=== PATIENT | male | born 1950 | race Caucasian/White ===

== ENCOUNTER 2019-02-10 14:21 | Inpatient (IN) | payer MEDICARE, OTHER ==
[~2019-02-10] VITALS: Ht 182.9 cm; Wt 90.5 kg
[~2019-02-10 14:21] MED LIST: 0.9 % Sodium Chloride IVF; ACET-1757 PO; ACET325T14 PO; ACET325T26 PO; ALPR0.25 PO; ALPR0.257 PO; ASPI-650; ASPI325T17 PO; BISA10SU2 PR; BISA10SU54 PR; BISA10SU65 PR; CEPH-368 PO; CEPH125S PO; DAPT500V6 IV; DIAZ5TAB4 PO; DIGO250T PO; DIGO250T6 PO; DIPH25CA61 PO; DOCU100C33 PO; DOXY100T PO; DULO20CA45 PO; ENOX30SY4 SQ; ENOX40SY4 SQ; ERTA1VIA INJ; ERTA1VIA IV; ERTA1VIA IVPB; FENT1PAT77 TD; FENT1PAT77 TP; FENT1PAT9 TD; FERR325T18 PO; FURO-92 PO; FURO-93 PO; FURO20TA3 PO; FURO80TA3 PO; HALO5AMP3 PO; HYDR-3237 PO; HYDR-3240 PO; HYDR-3241 PO; HYDR-3307 PO; IPRA3AMP30 NPPB; LACT1CAP24 PO; LACT1CAP3 PO; MAGN400O7 PO; MORP15TA3 PO; MORP30TA3 PO; MORP30TA81 PO; MORP5VIA IV; MORP5VIA IVPush; MULT1CAP19; MULT1CAP19 PO; MV-M1TAB3 PO; NA P133E2 PR; OMEP-110 PO; OMEP20CA9 PO; OMEP20TA62 PO; ONDA2VIA3 IV; ONDA4TAB12 PO; ONDA4VIA60 IVP; OXYC10TA6 PO; OXYC15TA PO; OXYC5TAB3 PO; POLY17PO29 PO; POLY17PO5 PO; POTA10TA31 PO; POTA20TA14 PO; POTA20TA6 PO; SENN8.6C2 PO; SULF1TAB24 PO; TAMS-11 PO; TAMS0.4C2; TAMS0.4C2 PO; VANC125C11 PO; VANC125C3 PO; VANC1VIA3 PO; VANCOMYCIN PO; ZOLP5TAB6 PO; [UNRECOGNIZED DRUG - CODE] IV
[2019-02-10] MEDS ORDERED: SODIUM CHLORIDE 0.9% 1,000 ML IV ONE (14:57)
[2019-02-10] MEDS ORDERED: VANCOMYCIN PER PHARMACY IV ONE (15:00)
[2019-02-10] MEDS ORDERED: SODIUM CHLORIDE FLUSH 10ML SYR IVF ONE ×2 (15:00)
--- NOTE | 2019-02-10 15:22 | NUR ---
PT CYNDY FROM SNF ([facility]) FOR ALTERED MENTAL STATUS, LAST SEEN NORMAL THIS AM AT 0800. REPORT TAKEN FROM EMS. PT DROWSY, IRRITABLE AND ONLY ORIENTED TO SELF ON ARRIVAL. WHEN NOT STIMULATED, PT FALLS ASLEEP IMMEDIATELY. ANSWERS QUESTIONS, SPEAKING IN FULL SENTENCES, FOLLOWS COMMANDS. PT HAS NO DRIFT, BILATERAL GRASP EQUAL. PT STATES HE CANNOT MOVE EITHER LE, IS NONAMBULATORY. PT ATTACHED TO ALL MONITORS, EKG TAKEN BY EDT. PICC TO RIGHT UPPER ARM, DRESSING CDI. PIV PLACED BY THIS RN, PER EDMD ORDERS. URINE SAMPLE COLLECTED AND SENT TO LAB. AWAITING LABS, TO BE ADMITTED.
[2019-02-10 15:30] LABS: BASOPHILS # (AUTO) 0.03 x10^3/uL (0-0.1); BASOPHILS % (AUTO) 1 % (0-1); EOSINOPHILS # (AUTO) 0.21 x10^3/uL (0-0.4); EOSINOPHILS % (AUTO) 3 % (1-7); LYMPHOCYTES # (AUTO) 1.19 x10^3/uL (1-3.4); LYMPHOCYTES % (AUTO) 16 % (22-44); MD NO; MEAN CORPUSCULAR HEMOGLOBIN 27.4 pg (27.5-34.5); MEAN CORPUSCULAR HGB CONC 32.2 g/dL (33.2-36.2); MEAN CORPUSCULAR VOLUME 85.1 fL (81-97); MEAN PLATELET VOLUME 8.6 fL (7.4-10.4); MONOCYTES # (AUTO) 0.81 x10^3/uL (0.2-0.8); MONOCYTES % (AUTO) 11 % (2-9); NEUTROPHILS # (AUTO) 5.14 x10^3/uL (1.8-6.8); NEUTROPHILS % (AUTO) 70 % (42-75); PLATELET COUNT 408 x10^3/uL (130-400); RED BLOOD COUNT 4.21 x10^6/uL (4.38-5.82); RED CELL DISTRIBUTION WIDTH 18.5 % (9.4-14.8)
[2019-02-10] MEDS ORDERED: VANCOMYCIN 2,400 MG in SODIUM CHLORIDE 0.9% 500 ML IV ONE (15:30)
[2019-02-10 15:37] LABS: INTERNATIONAL NORMALIZED RATIO 1.18 (0.93-1.1); PROTHROMBIN TIME 12.3 Seconds (9.6-11.5)
[2019-02-10 15:38] LABS: ALBUMIN 2.5 g/dL (3.4-5.0); ANION GAP 4 mmol/L (5-15); CALCIUM 8.8 mg/dL (8.5-10.1); CHLORIDE 97 mmol/L (98-107); CREATININE 0.81 mg/dL (0.7-1.3)
[2019-02-10 15:42] LABS: ALANINE AMINOTRANSFERASE < 6 U/L (12-78)
--- NOTE | 2019-02-10 15:43 | NUR ---
Break RN: Pt repositioned in bed, pt appears altered, calm, redirectable. Bed moved to face the tv, pt distracted and sleeping upon reassesment. Abx ordered from pharmacy.
[2019-02-10 15:46] LABS: MICROSCOPIC NOT IND
[2019-02-10 15:48] LABS: ALKALINE PHOSPHATASE 89 U/L (45-117); BILIRUBIN,TOTAL 0.4 mg/dL (0.2-1.0); TOTAL PROTEIN 7.8 g/dL (6.4-8.2)
[2019-02-10 15:50] LABS: CULTURE INDICATED? NO
--- NOTE | 2019-02-10 15:53 | NUR ---
LABOR ECONOMICS PROFESSOR: MEDICAL SITTER REQUESTED
--- NOTE | 2019-02-10 16:01 | NUR ---
BreakRN: Abx infusing, lights dimmed for pt comfort, clip. Charge aware of need for sitter.
--- NOTE | 2019-02-10 16:18 | NUR ---
PT SLEEPING IN BED, RESPS EVEN AND UNLABORED. PT IS NSR RATE 80'S WITH NO ECTOPY. VANCO/NS INFUSING. PT TO HAVE HEAD CT.
--- NOTE | 2019-02-10 16:51 | NUR ---
pt to ct with sitter
[2019-02-10 17:02] LABS: HCT (SEDRATE) 35.8 % (39.2-51.8)
--- NOTE | 2019-02-10 17:23 | NUR ---
PT BACK FROM CT. MD PONCE AT BEDSIDE TO ADMIT.
[2019-02-10] MEDS ORDERED: METO50TA82 PO (17:26)
[2019-02-10] MEDS ORDERED: DIVA500T2 PO (17:26)
[2019-02-10] MEDS ORDERED: FURO40TA6 PO (17:26)
[2019-02-10] MEDS ORDERED: ANCEF IV (17:26)
[2019-02-10] MEDS ORDERED: DIPH25CA61 PO (17:26)
[2019-02-10] MEDS ORDERED: FLUC200T4 PO (17:26)
[2019-02-10] MEDS ORDERED: UMEC1DIS INH (17:26)
[2019-02-10] MEDS ORDERED: ONDANSETRON ODT 4 MG PO PRN (17:30)
[2019-02-10] MEDS ORDERED: hydrALAzine 20 MG/ML, 1ML IVPush PRN (17:30)
[2019-02-10] MEDS ORDERED: LABETALOL 5MG/ML, 20ML IVPush PRN (17:30)
[2019-02-10] MEDS ORDERED: PROMETHAZINE 25 MG/ML, 1ML IM PRN (17:30)
[2019-02-10] MEDS ORDERED: ONDANSETRON 2MG/ML, 2ML IVPush PRN (17:30)
[2019-02-10] MEDS ORDERED: BISACODYL 10 MG SUPP PR PRN (17:30)
[2019-02-10] MEDS ORDERED: MORPHINE SULFATE 4 MG/ML, 1ML IVPush PRN (17:30)
[2019-02-10] MEDS ORDERED: ACETAMINOPHEN 325 MG TABLET PO PRN (17:30)
[2019-02-10] MEDS ORDERED: DOCUSATE 100 MG CAPSULE PO PRN (17:30)
[2019-02-10] MEDS ORDERED: POLYETHYLENE GLYCOL 17 GM PACKET PO PRN (17:30)
[2019-02-10] MEDS ORDERED: MAGN400O7 PO (17:51)
[2019-02-10] MEDS ORDERED: POLY17PO5 PO (17:51)
[2019-02-10] MEDS ORDERED: QUET25TA5 PO (17:51)
[2019-02-10] MEDS ORDERED: LACT1CAP3 PO (17:51)
[2019-02-10] MEDS ORDERED: SENN8.6T79 PO (17:51)
[2019-02-10] MEDS ORDERED: VENTOLIN INH (17:57)
[2019-02-10] MEDS ORDERED: RIVA20TA PO (17:57)
[2019-02-10] MEDS ORDERED: TRAZ-137 PO (17:57)
--- NOTE | 2019-02-10 17:58 | NUR ---
MED REC COMPLETED, MD PONCE NOTIFIED MEDICATION REC IN NEED OF MD REVIEW. MED REC REVIEWED BY MD PONCE.
--- NOTE | 2019-02-10 18:18 | NUR ---
REPORT CALLED TO CHAS MONTEJO PT AWAITING TRANSPORT [id number].
--- NOTE | 2019-02-10 18:20 | NUR ---
PT TRANSPORTED TO ROOM 352. NADN AT TRANSPORT.
[2019-02-10 18:29] LABS: HEMOGLOBIN A1C 5.4 % (4.2-6.3)
[2019-02-10 18:29] LABS: FREE T4 (FREE THYROXINE) 1.34 ng/dL (0.76-1.46); THYROID STIMULATING HORMONE 1.59 mIU/L (0.358-3.740)
[2019-02-10 20:30] VITALS: BP 111/66
[2019-02-10] MEDS: METOPROLOL TARTRATE 50 MG TABLET PO SCH (20:33)
[2019-02-10] MEDS: DIVALPROEX 500 MG TABLET.DR PO SCH (20:39)
[2019-02-10] MEDS ORDERED: ALBUTEROL SULFATE 2.5 MG/3 ML NPPB PRN (22:00)
[2019-02-10] MEDS: ERTAPENEM 1 GM in SODIUM CHLORIDE 0.9% 50 ML IV SCH (22:14)
[2019-02-10] MEDS: DAPTOMYCIN 720 MG in SODIUM CHLORIDE 0.9% 100 ML IVPB SCH (22:59)
[2019-02-11 02:32] VITALS: BP 117/68
[2019-02-11 03:17] VITALS: BP 111/66
[2019-02-11 05:02] LABS: BASOPHILS # (AUTO) 0.03 x10^3/uL (0-0.1); BASOPHILS % (AUTO) 1 % (0-1); EOSINOPHILS # (AUTO) 0.24 x10^3/uL (0-0.4); EOSINOPHILS % (AUTO) 4 % (1-7); LYMPHOCYTES # (AUTO) 1.13 x10^3/uL (1-3.4); LYMPHOCYTES % (AUTO) 18 % (22-44); MD NO; MEAN CORPUSCULAR HEMOGLOBIN 28.4 pg (27.5-34.5); MEAN CORPUSCULAR HGB CONC 32.6 g/dL (33.2-36.2); MEAN PLATELET VOLUME 8.6 fL (7.4-10.4); MONOCYTES # (AUTO) 0.77 x10^3/uL (0.2-0.8); MONOCYTES % (AUTO) 12 % (2-9); NEUTROPHILS # (AUTO) 4.07 x10^3/uL (1.8-6.8); NEUTROPHILS % (AUTO) 65 % (42-75); PLATELET COUNT 339 x10^3/uL (130-400); RED BLOOD COUNT 3.97 x10^6/uL (4.38-5.82); RED CELL DISTRIBUTION WIDTH 18.9 % (9.4-14.8)
[2019-02-11 05:14] LABS: ALBUMIN 2.2 g/dL (3.4-5.0); ANION GAP 7 mmol/L (5-15); CALCIUM 8.7 mg/dL (8.5-10.1); CHLORIDE 98 mmol/L (98-107); CHOLESTEROL, TOTAL 132 mg/dL (140-239); CREATININE 0.61 mg/dL (0.7-1.3)
[2019-02-11 05:17] LABS: ALKALINE PHOSPHATASE 80 U/L (45-117); BILIRUBIN,TOTAL 0.4 mg/dL (0.2-1.0); CHOL/HDL RATIO 5.7; HDL CHOL % 17 % (26-37); HDL CHOLESTEROL (DIRECT) 23 mg/dL (40-60); LDL CHOLESTEROL,CALCULATED 97 mg/dL (54-169); LDL/HDL RATIO 4.2 (0.5-3.0); TOTAL PROTEIN 7.2 g/dL (6.4-8.2); TRIGLYCERIDES 60 mg/dL (50-200); VLDL CHOLESTEROL 12 mg/dL (0-25)
[2019-02-11 05:19] LABS: ALANINE AMINOTRANSFERASE < 6 U/L (12-78)
[2019-02-11] MEDS: SODIUM CHLORIDE 0.9% 1,000 ML IV SCH ×2 (05:54→08:00)
[2019-02-11] MEDS: OXYcodone/APAP 5/325MG TABLET PO PRN (06:01)
[2019-02-11 07:03] VITALS: BP 116/79
[2019-02-11] MEDS: RIVAROXABAN 20 MG TABLET PO SCH (08:00)
[2019-02-11] MEDS ORDERED: FUROSEMIDE 40 MG TABLET PO SCH (09:00)
[2019-02-11] MEDS: TEMPLATE NON-FORMULARY MED. (Umeclidinium Brm/Vilanterol Tr (Anoro Ellipta 62.5-25 Mcg Inh INH SCH (09:00)
[2019-02-11] MEDS: METOPROLOL TARTRATE 50 MG TABLET PO SCH ×2 (09:01→20:24)
[2019-02-11] MEDS: DIVALPROEX 500 MG TABLET.DR PO SCH ×2 (09:01→20:24)
[2019-02-11] MEDS: FLUCONAZOLE 200 MG TABLET PO SCH (09:01)
[2019-02-11 13:21] VITALS: BP 108/74
[2019-02-11 18:35] VITALS: BP 110/78
[2019-02-11] MEDS: DIPHENHYDRAMINE 25 MG CAPSULE PO PRN (20:24)
[2019-02-11] MEDS: ERTAPENEM 1 GM in SODIUM CHLORIDE 0.9% 50 ML IV SCH (22:31)
[2019-02-11] MEDS: DAPTOMYCIN 720 MG in SODIUM CHLORIDE 0.9% 100 ML IVPB SCH (23:09)
[2019-02-12] MEDS ORDERED: ZIPRASIDONE 20 MG INJ IM ONE ×2 (00:20→00:30)
[2019-02-12 00:58] VITALS: BP 114/69
[2019-02-12] MEDS: RIVAROXABAN 20 MG TABLET PO SCH ×2 (06:04→09:18)
[2019-02-12 07:18] LABS: ANION GAP 4 mmol/L (5-15); CALCIUM 9.3 mg/dL (8.5-10.1); CHLORIDE 102 mmol/L (98-107); CREATININE 0.57 mg/dL (0.7-1.3)
[2019-02-12 07:20] LABS: BASOPHILS # (AUTO) 0.06 x10^3/uL (0-0.1); BASOPHILS % (AUTO) 1 % (0-1); EOSINOPHILS # (AUTO) 0.16 x10^3/uL (0-0.4); EOSINOPHILS % (AUTO) 2 % (1-7); LYMPHOCYTES # (AUTO) 1.25 x10^3/uL (1-3.4); LYMPHOCYTES % (AUTO) 13 % (22-44); MD NO; MEAN CORPUSCULAR HEMOGLOBIN 27.9 pg (27.5-34.5); MEAN CORPUSCULAR HGB CONC 32.7 g/dL (33.2-36.2); MEAN CORPUSCULAR VOLUME 85.3 fL (81-97); MEAN PLATELET VOLUME 8.4 fL (7.4-10.4); MONOCYTES # (AUTO) 1.86 x10^3/uL (0.2-0.8); MONOCYTES % (AUTO) 20 % (2-9); NEUTROPHILS # (AUTO) 6.11 x10^3/uL (1.8-6.8); NEUTROPHILS % (AUTO) 65 % (42-75); PLATELET COUNT 369 x10^3/uL (130-400); RED BLOOD COUNT 4.59 x10^6/uL (4.38-5.82); RED CELL DISTRIBUTION WIDTH 18.7 % (9.4-14.8)
[2019-02-12 07:33] VITALS: BP 138/86
[2019-02-12] MEDS: TEMPLATE NON-FORMULARY MED. (Umeclidinium Brm/Vilanterol Tr (Anoro Ellipta 62.5-25 Mcg Inh INH SCH (09:00)
[2019-02-12] MEDS: METOPROLOL TARTRATE 50 MG TABLET PO SCH ×2 (09:14→20:49)
[2019-02-12] MEDS: DIVALPROEX 500 MG TABLET.DR PO SCH ×2 (09:14→20:49)
[2019-02-12] MEDS: FLUCONAZOLE 200 MG TABLET PO SCH (09:15)
[2019-02-12 15:06] VITALS: BP 114/59
[2019-02-12 18:45] VITALS: BP 115/75
[2019-02-12] MEDS: DIPHENHYDRAMINE 25 MG CAPSULE PO PRN (20:49)
[2019-02-12] MEDS: OXYcodone/APAP 5/325MG TABLET PO PRN (20:55)
[2019-02-12] MEDS: ERTAPENEM 1 GM in SODIUM CHLORIDE 0.9% 50 ML IV SCH (22:16)
[2019-02-13 02:30] VITALS: BP 117/74
[2019-02-13] MEDS: ERTAPENEM 1 GM in SODIUM CHLORIDE 0.9% 50 ML IV SCH ×2 (05:30→05:49)
[2019-02-13 05:42] VITALS: BP 117/74
[2019-02-13] MEDS: RIVAROXABAN 20 MG TABLET PO SCH (05:49)
[2019-02-13] MEDS: DAPTOMYCIN 720 MG in SODIUM CHLORIDE 0.9% 100 ML IVPB SCH (06:29)
[2019-02-13 08:28] VITALS: BP 102/57
[2019-02-13] MEDS: METOPROLOL TARTRATE 50 MG TABLET PO SCH ×2 (08:36→20:01)
[2019-02-13] MEDS: DIVALPROEX 500 MG TABLET.DR PO SCH ×2 (08:36→20:01)
[2019-02-13] MEDS: FLUCONAZOLE 200 MG TABLET PO SCH (08:36)
[2019-02-13] MEDS: TEMPLATE NON-FORMULARY MED. (Umeclidinium Brm/Vilanterol Tr (Anoro Ellipta 62.5-25 Mcg Inh INH SCH (09:00)
[2019-02-13] MEDS: OXYcodone/APAP 5/325MG TABLET PO PRN (13:57)
[2019-02-13 14:20] VITALS: BP 106/72
[2019-02-13 19:19] VITALS: BP 110/59
[2019-02-13] MEDS: DIPHENHYDRAMINE 25 MG CAPSULE PO PRN (22:28)
[2019-02-14] MEDS: OXYcodone/APAP 5/325MG TABLET PO PRN ×2 (00:17→21:08)
[2019-02-14 00:30] VITALS: BP 114/68
[2019-02-14] MEDS: ERTAPENEM 1 GM in SODIUM CHLORIDE 0.9% 50 ML IV SCH (05:55)
[2019-02-14] MEDS: RIVAROXABAN 20 MG TABLET PO SCH (06:40)
[2019-02-14] MEDS: DAPTOMYCIN 720 MG in SODIUM CHLORIDE 0.9% 100 ML IVPB SCH (06:56)
[2019-02-14 06:58] VITALS: BP_SYST 105; BP_DIAS 66; BP_DIAS 67
[2019-02-14] MEDS: DIVALPROEX 500 MG TABLET.DR PO SCH ×2 (08:11→21:08)
[2019-02-14] MEDS: FLUCONAZOLE 200 MG TABLET PO SCH (08:11)
[2019-02-14] MEDS: TEMPLATE NON-FORMULARY MED. (Umeclidinium Brm/Vilanterol Tr (Anoro Ellipta 62.5-25 Mcg Inh INH SCH (08:11)
[2019-02-14] MEDS: METOPROLOL TARTRATE 50 MG TABLET PO SCH ×2 (08:11→21:08)
[2019-02-14 12:25] VITALS: BP 137/86
[2019-02-14] MEDS: DIPHENHYDRAMINE 25 MG CAPSULE PO PRN (19:31)
[2019-02-14 21:29] VITALS: BP 134/84
[2019-02-15 01:28] VITALS: BP 117/68
[2019-02-15] MEDS: OXYcodone/APAP 5/325MG TABLET PO PRN ×3 (02:07→18:42)
[2019-02-15] MEDS: ERTAPENEM 1 GM in SODIUM CHLORIDE 0.9% 50 ML IV SCH (05:29)
[2019-02-15] MEDS: DAPTOMYCIN 720 MG in SODIUM CHLORIDE 0.9% 100 ML IVPB SCH (06:16)
[2019-02-15] MEDS: RIVAROXABAN 20 MG TABLET PO SCH (06:16)
[2019-02-15] MEDS: TEMPLATE NON-FORMULARY MED. (Umeclidinium Brm/Vilanterol Tr (Anoro Ellipta 62.5-25 Mcg Inh INH SCH (08:00)
[2019-02-15] MEDS: FLUCONAZOLE 200 MG TABLET PO SCH (08:00)
[2019-02-15] MEDS: DIVALPROEX 500 MG TABLET.DR PO SCH ×2 (08:00→22:24)
[2019-02-15] MEDS: METOPROLOL TARTRATE 50 MG TABLET PO SCH ×2 (08:00→22:24)
[2019-02-15 12:24] VITALS: BP 115/71
[2019-02-15] MEDS: DIPHENHYDRAMINE 25 MG CAPSULE PO PRN (19:33)
[2019-02-15 20:00] VITALS: BP 163/87
[2019-02-16 02:00] VITALS: BP 117/82
[2019-02-16] MEDS: ERTAPENEM 1 GM in SODIUM CHLORIDE 0.9% 50 ML IV SCH (05:12)
[2019-02-16] MEDS: RIVAROXABAN 20 MG TABLET PO SCH (06:02)
[2019-02-16] MEDS: DAPTOMYCIN 720 MG in SODIUM CHLORIDE 0.9% 100 ML IVPB SCH (06:03)
[2019-02-16 07:02] VITALS: BP 127/81
[2019-02-16] MEDS: TEMPLATE NON-FORMULARY MED. (Umeclidinium Brm/Vilanterol Tr (Anoro Ellipta 62.5-25 Mcg Inh INH SCH (09:00)
[2019-02-16] MEDS: DIVALPROEX 500 MG TABLET.DR PO SCH ×2 (09:06→19:39)
[2019-02-16] MEDS: FLUCONAZOLE 200 MG TABLET PO SCH (09:07)
[2019-02-16] MEDS: METOPROLOL TARTRATE 50 MG TABLET PO SCH ×2 (09:09→21:00)
[2019-02-16 12:17] VITALS: BP 135/81
[2019-02-16] MEDS: OXYcodone/APAP 5/325MG TABLET PO PRN ×3 (12:23→23:50)
[2019-02-16 19:37] VITALS: BP 100/60
[2019-02-16] MEDS: DIPHENHYDRAMINE 25 MG CAPSULE PO PRN (19:39)
[2019-02-16 23:58] VITALS: BP 100/63
[2019-02-17 00:49] VITALS: BP 100/63
[2019-02-17] MEDS: ERTAPENEM 1 GM in SODIUM CHLORIDE 0.9% 50 ML IV SCH (05:04)
[2019-02-17] MEDS: DAPTOMYCIN 720 MG in SODIUM CHLORIDE 0.9% 100 ML IVPB SCH (05:33)
[2019-02-17] MEDS: RIVAROXABAN 20 MG TABLET PO SCH (05:33)
[2019-02-17 07:13] VITALS: BP 104/68
[2019-02-17] MEDS: TEMPLATE NON-FORMULARY MED. (Umeclidinium Brm/Vilanterol Tr (Anoro Ellipta 62.5-25 Mcg Inh INH SCH (09:00)
[2019-02-17] MEDS: FLUCONAZOLE 200 MG TABLET PO SCH (12:12)
[2019-02-17] MEDS: METOPROLOL TARTRATE 50 MG TABLET PO SCH ×2 (12:13→21:00)
[2019-02-17] MEDS: DIVALPROEX 500 MG TABLET.DR PO SCH ×2 (12:14→21:07)
[2019-02-17] MEDS: OXYcodone/APAP 5/325MG TABLET PO PRN ×3 (12:26→21:07)
[2019-02-17 14:01] VITALS: BP 110/69
[2019-02-17 20:47] VITALS: BP 100/66
[2019-02-17] MEDS: DIPHENHYDRAMINE 25 MG CAPSULE PO PRN (21:07)
[2019-02-18 02:13] VITALS: BP 104/63
[2019-02-18] MEDS: OXYcodone/APAP 5/325MG TABLET PO PRN ×3 (02:33→23:55)
[2019-02-18] MEDS: ERTAPENEM 1 GM in SODIUM CHLORIDE 0.9% 50 ML IV SCH (04:58)
[2019-02-18] MEDS: DAPTOMYCIN 720 MG in SODIUM CHLORIDE 0.9% 100 ML IVPB SCH (05:47)
[2019-02-18 07:41] VITALS: BP 120/81
[2019-02-18] MEDS: FLUCONAZOLE 200 MG TABLET PO SCH (07:45)
[2019-02-18] MEDS: RIVAROXABAN 20 MG TABLET PO SCH (07:45)
[2019-02-18] MEDS: METOPROLOL TARTRATE 50 MG TABLET PO SCH ×2 (07:45→20:11)
[2019-02-18] MEDS: DIVALPROEX 500 MG TABLET.DR PO SCH ×2 (07:45→20:11)
[2019-02-18] MEDS: TEMPLATE NON-FORMULARY MED. (Umeclidinium Brm/Vilanterol Tr (Anoro Ellipta 62.5-25 Mcg Inh INH SCH (09:00)
[2019-02-18 12:40] VITALS: BP 113/70
[2019-02-18] MEDS ORDERED: FENTANYL PF 250 MCG/5ML ONE (17:08)
[2019-02-18] MEDS ORDERED: SUCCINYLCHOLINE 20 MG/ML, 10ML ONE (17:15)
[2019-02-18] MEDS ORDERED: ROCURONIUM 10MG/ML,5ML ONE (17:15)
[2019-02-18] MEDS ORDERED: EPHEDRINE 50 MG/ML, 1ML ONE (17:15)
[2019-02-18] MEDS ORDERED: DEXAMETHASONE 4 MG/ML, 1ML ONE (17:15)
[2019-02-18] MEDS ORDERED: ONDANSETRON 2MG/ML, 2ML ONE (17:15)
[2019-02-18] MEDS ORDERED: GLYCOPYRROLATE 0.2MG/1ML, 5ML ONE (17:15)
[2019-02-18] MEDS ORDERED: NEOSTIGMINE 1 MG/ML, 10ML ONE (17:15)
[2019-02-18] MEDS ORDERED: PHENYLEPHRINE 10 MG/ML ONE (17:15)
[2019-02-18] MEDS ORDERED: LABETALOL 5MG/ML, 20ML IV PRN (17:30)
[2019-02-18] MEDS ORDERED: PROCHLORPERAZINE 5 MG/ML, 2ML IV PRN (17:30)
[2019-02-18] MEDS ORDERED: METOPROLOL 1 MG/ML, 5ML IV PRN (17:30)
[2019-02-18] MEDS ORDERED: OXYcodone 5 MG/5 ML ORAL.SOL UDC PO PRN (17:30)
[2019-02-18] MEDS ORDERED: hydrALAzine 20 MG/ML, 1ML IV PRN (17:30)
[2019-02-18] MEDS ORDERED: FENTANYL PF 100 MCG/2ML IV PRN (17:30)
[2019-02-18] MEDS ORDERED: MEPERIDINE/PF 25MG/0.5ML IVPush PRN (17:30)
[2019-02-18] MEDS ORDERED: HALOPERIDOL 5 MG/ML IV PRN (17:30)
[2019-02-18] MEDS ORDERED: PROMETHAZINE 25 MG/ML, 1ML IV PRN (17:30)
[2019-02-18] MEDS ORDERED: HYDROmorphone 2 MG/ML, 1ML IVPush PRN (17:30)
[2019-02-18] MEDS ORDERED: DIPHENHYDRAMINE 50 MG/ML, 1ML IVPush PRN (17:30)
[2019-02-18] MEDS ORDERED: METOPROLOL 1 MG/ML, 5ML ONE (18:35)
[2019-02-18] MEDS: METOPROLOL 1 MG/ML, 5ML IV PRN ×2 (18:40→18:50)
[2019-02-18] MEDS ORDERED: OXYcodone 5 MG/5 ML ORAL.SOL UDC ONE (19:09)
[2019-02-18] MEDS ORDERED: FENTANYL PF 100 MCG/2ML ONE (19:09)
[2019-02-18 20:06] VITALS: BP 115/72
[2019-02-19 01:12] VITALS: BP 93/57
[2019-02-19] MEDS: OXYcodone/APAP 5/325MG TABLET PO PRN ×2 (04:31→21:18)
[2019-02-19] MEDS: ERTAPENEM 1 GM in SODIUM CHLORIDE 0.9% 50 ML IV SCH (04:31)
[2019-02-19 05:35] LABS: BASOPHILS # (AUTO) 0.01 x10^3/uL (0-0.1); BASOPHILS % (AUTO) 0 % (0-1); EOSINOPHILS % (AUTO) 0 % (1-7); LYMPHOCYTES # (AUTO) 0.51 x10^3/uL (1-3.4); LYMPHOCYTES % (AUTO) 5 % (22-44); MD NO; MEAN CORPUSCULAR HEMOGLOBIN 28.7 pg (27.5-34.5); MEAN CORPUSCULAR HGB CONC 33.3 g/dL (33.2-36.2); MEAN CORPUSCULAR VOLUME 86.3 fL (81-97); MEAN PLATELET VOLUME 8.6 fL (7.4-10.4); MONOCYTES # (AUTO) 0.58 x10^3/uL (0.2-0.8); MONOCYTES % (AUTO) 6 % (2-9); NEUTROPHILS # (AUTO) 8.56 x10^3/uL (1.8-6.8); NEUTROPHILS % (AUTO) 89 % (42-75); PLATELET COUNT 373 x10^3/uL (130-400); RED BLOOD COUNT 3.88 x10^6/uL (4.38-5.82); RED CELL DISTRIBUTION WIDTH 18.3 % (9.4-14.8)
[2019-02-19 05:40] LABS: CHLORIDE 107 mmol/L (98-107)
[2019-02-19] MEDS: DAPTOMYCIN 720 MG in SODIUM CHLORIDE 0.9% 100 ML IVPB SCH (05:53)
[2019-02-19 06:08] LABS: ALANINE AMINOTRANSFERASE 11 U/L (12-78); ALBUMIN 2.6 g/dL (3.4-5.0); ALKALINE PHOSPHATASE 72 U/L (45-117); ANION GAP 8 mmol/L (5-15); BILIRUBIN,TOTAL 0.7 mg/dL (0.2-1.0); CALCIUM 9.2 mg/dL (8.5-10.1); CREATININE 0.85 mg/dL (0.7-1.3); TOTAL PROTEIN 7.7 g/dL (6.4-8.2)
[2019-02-19 07:34] VITALS: BP 113/80
[2019-02-19] MEDS: TEMPLATE NON-FORMULARY MED. (Umeclidinium Brm/Vilanterol Tr (Anoro Ellipta 62.5-25 Mcg Inh INH SCH (09:00)
[2019-02-19] MEDS: RIVAROXABAN 20 MG TABLET PO SCH (10:04)
[2019-02-19] MEDS: FLUCONAZOLE 200 MG TABLET PO SCH (10:04)
[2019-02-19] MEDS: METOPROLOL TARTRATE 50 MG TABLET PO SCH ×2 (10:05→20:15)
[2019-02-19] MEDS: DIVALPROEX 500 MG TABLET.DR PO SCH ×2 (10:05→21:15)
[2019-02-19 14:09] VITALS: BP 90/60
[2019-02-19 19:39] VITALS: BP 90/60
[2019-02-19 21:15] VITALS: BP 99/60
[2019-02-20 01:57] VITALS: BP 99/62
[2019-02-20] MEDS: OXYcodone/APAP 5/325MG TABLET PO PRN ×3 (04:15→20:57)
[2019-02-20 05:36] LABS: BASOPHILS # (AUTO) 0.02 x10^3/uL (0-0.1); BASOPHILS % (AUTO) 0 % (0-1); EOSINOPHILS % (AUTO) 0 % (1-7); LYMPHOCYTES # (AUTO) 0.87 x10^3/uL (1-3.4); LYMPHOCYTES % (AUTO) 12 % (22-44); MD NO; MEAN CORPUSCULAR HEMOGLOBIN 28.5 pg (27.5-34.5); MEAN CORPUSCULAR HGB CONC 33.1 g/dL (33.2-36.2); MEAN CORPUSCULAR VOLUME 86.2 fL (81-97); MEAN PLATELET VOLUME 8.6 fL (7.4-10.4); MONOCYTES # (AUTO) 1.03 x10^3/uL (0.2-0.8); MONOCYTES % (AUTO) 14 % (2-9); NEUTROPHILS % (AUTO) 75 % (42-75); PLATELET COUNT 343 x10^3/uL (130-400); RED BLOOD COUNT 3.27 x10^6/uL (4.38-5.82)
[2019-02-20] MEDS: ERTAPENEM 1 GM in SODIUM CHLORIDE 0.9% 50 ML IV SCH (05:37)
[2019-02-20 05:57] LABS: CHLORIDE 109 mmol/L (98-107)
[2019-02-20 06:10] LABS: ALANINE AMINOTRANSFERASE 10 U/L (12-78); ALBUMIN 2.5 g/dL (3.4-5.0); ALKALINE PHOSPHATASE 65 U/L (45-117); ANION GAP 5 mmol/L (5-15); BILIRUBIN,TOTAL 0.4 mg/dL (0.2-1.0); CALCIUM 9.1 mg/dL (8.5-10.1); CREATININE 0.81 mg/dL (0.7-1.3); TOTAL PROTEIN 7.1 g/dL (6.4-8.2)
[2019-02-20] MEDS: DAPTOMYCIN 720 MG in SODIUM CHLORIDE 0.9% 100 ML IVPB SCH (06:14)
[2019-02-20 08:01] VITALS: BP 110/71
[2019-02-20] MEDS: TEMPLATE NON-FORMULARY MED. (Umeclidinium Brm/Vilanterol Tr (Anoro Ellipta 62.5-25 Mcg Inh INH SCH (09:00)
[2019-02-20] MEDS: METOPROLOL TARTRATE 50 MG TABLET PO SCH ×2 (09:00→20:58)
[2019-02-20] MEDS: RIVAROXABAN 20 MG TABLET PO SCH (10:02)
[2019-02-20] MEDS: DIVALPROEX 500 MG TABLET.DR PO SCH ×2 (10:02→20:56)
[2019-02-20 13:41] VITALS: BP 104/67
[2019-02-20 19:15] VITALS: BP 105/73
[2019-02-20 19:29] VITALS: BP 123/77
[2019-02-20 23:53] VITALS: BP 104/60
[2019-02-21 00:03] VITALS: BP 104/60
[2019-02-21] MEDS: DIPHENHYDRAMINE 25 MG CAPSULE PO PRN (01:31)
[2019-02-21 07:29] VITALS: BP 122/75
[2019-02-21] MEDS ORDERED: RIVAROXABAN 20 MG TABLET PO SCH (08:00)
[2019-02-21 08:50] LABS: ALANINE AMINOTRANSFERASE 12 U/L (12-78); ALBUMIN 2.6 g/dL (3.4-5.0); ANION GAP 5 mmol/L (5-15); CALCIUM 9.4 mg/dL (8.5-10.1); CHLORIDE 109 mmol/L (98-107); CREATININE 0.69 mg/dL (0.7-1.3)
[2019-02-21 08:55] LABS: ALKALINE PHOSPHATASE 76 U/L (45-117); BILIRUBIN,TOTAL 0.8 mg/dL (0.2-1.0); MEAN CORPUSCULAR HEMOGLOBIN 28.4 pg (27.5-34.5); MEAN CORPUSCULAR HGB CONC 32.7 g/dL (33.2-36.2); MEAN CORPUSCULAR VOLUME 86.7 fL (81-97); MEAN PLATELET VOLUME 8.9 fL (7.4-10.4); PLATELET COUNT 385 x10^3/uL (130-400); RED BLOOD COUNT 3.52 x10^6/uL (4.38-5.82); RED CELL DISTRIBUTION WIDTH 18.4 % (9.4-14.8); TOTAL PROTEIN 7.9 g/dL (6.4-8.2)
[2019-02-21] MEDS: TEMPLATE NON-FORMULARY MED. (Umeclidinium Brm/Vilanterol Tr (Anoro Ellipta 62.5-25 Mcg Inh INH SCH (09:00)
[2019-02-21] MEDS ORDERED: OXYC1TAB7 PO (09:42)
[2019-02-21] MEDS ORDERED: ACET325T14 PO (09:42)
[2019-02-21 10:09] LABS: BASOPHILS # (AUTO) 0.11 x10^3/uL (0-0.1); BASOPHILS % (AUTO) 1 % (0-1); EOSINOPHILS # (AUTO) 0.08 x10^3/uL (0-0.4); EOSINOPHILS % (AUTO) 1 % (1-7); LYMPHOCYTES # (AUTO) 1.18 x10^3/uL (1-3.4); LYMPHOCYTES % (AUTO) 9 % (22-44); MD SCAN; MONOCYTES # (AUTO) 1.06 x10^3/uL (0.2-0.8); MONOCYTES % (AUTO) 8 % (2-9); NEUTROPHILS # (AUTO) 10.39 x10^3/uL (1.8-6.8); NEUTROPHILS % (AUTO) 81 % (42-75)
[2019-02-21] MEDS: DIVALPROEX 500 MG TABLET.DR PO SCH (10:23)
[2019-02-21] MEDS: METOPROLOL TARTRATE 50 MG TABLET PO SCH (10:23)
[2019-02-21] MEDS: OXYcodone/APAP 5/325MG TABLET PO PRN (12:24)
[2019-02-22] MEDS ORDERED: FLUC200T4 PO (23:32)
== END 2019-02-21 16:50 | DRG 474 ==
LOC: ED 16:25 → EDIP 16:26 → ED 16:54 → 3NE 18:22
PROVIDERS: ADMIT Internal Medicine; ATTEND Internal Medicine
PROC: 0Y6D0Z3 Detachment at Left Upper Leg, Low, Open Approach (ICD-10-PCS; principal; 2019-02-18 17:00)
DX: T84.54XA Infection and inflammatory reaction due to internal left knee prosthesis, initial encounter (principal); G93.41 Metabolic encephalopathy; K68.12 Psoas muscle abscess; L03.116 Cellulitis of left lower limb; E87.1 Hypo-osmolality and hyponatremia; E44.0 Moderate protein-calorie malnutrition; D68.59 Other primary thrombophilia; I48.92 Unspecified atrial flutter; I50.32 Chronic diastolic (congestive) heart failure; M86.8X6 Other osteomyelitis, lower leg; I95.9 Hypotension, unspecified; B95.2 Enterococcus as the cause of diseases classified elsewhere; D64.9 Anemia, unspecified; E11.69 Type 2 diabetes mellitus with other specified complication; F03.90 Unspecified dementia, unspecified severity, without behavioral disturbance, psychotic disturbance, mood disturbance, and anxiety; Z96.652 Presence of left artificial knee joint; I11.0 Hypertensive heart disease with heart failure; I48.2 Chronic atrial fibrillation; J44.9 Chronic obstructive pulmonary disease, unspecified; K21.9 Gastro-esophageal reflux disease without esophagitis; M81.0 Age-related osteoporosis without current pathological fracture; N40.0 Benign prostatic hyperplasia without lower urinary tract symptoms; Y83.1 Surgical operation with implant of artificial internal device as the cause of abnormal reaction of the patient, or of later complication, without mention of misadventure at the time of the procedure; F10.20 Alcohol dependence, uncomplicated; G89.29 Other chronic pain; M54.9 Dorsalgia, unspecified; Z86.61 Personal history of infections of the central nervous system; Z87.891 Personal history of nicotine dependence; Y92.89 Other specified places as the place of occurrence of the external cause; Z88.8 Allergy status to other drugs, medicaments and biological substances; Z68.27 Body mass index [BMI] 27.0-27.9, adult
CPT/HCPCS: 36415; 70450; 71045; 80048; 80053; 80061; 80164; 81003; 82140; 82962; 83036; 83605; 83735; 84145; 84439; 84443; 85025; 85610; 85651; 86140; 87040; 87070; 87077; 87186; 87205; 93005; 96374; G0378; J0878; J1100; J1335; J2405; J2710; J3010; J3370; J3486; 92523-GN; J0330; J2370; J7030; J7040; Q0163